=== PATIENT | female | born 1955 | race Caucasian/White ===

== ENCOUNTER 2023-04-29 09:22 | Observation (INO) ==
[2023-04-29 09:34] VITALS: BMI 37.6
--- NOTE | 2023-04-29 09:52 | DR.GENAD ---
HPI Time Seen Time Seen by Provider: 04/29/23 09:52 PCP Primary Care Physician: STAR HENLEY Complaint/Symptoms Chief Complaint Doctors Comments: 67-year-old female presents for evaluation. Reportedly had routine blood work drawn yesterday. Was notified that her hemoglobin is low at 6. Patient denies any known source of bleeding. Has a distant history of iron anemia when younger.. Patient has been feeling tired, weak in general. Having exertional shortness of breath, denies chest pain. No GI complaints, stools are brown. No blood in the urine she knows of. Chief Complaint:: Patient states she had lab work drawn yesterday around 1330 and got called about 1700 with a critically low hemoglobin of 6. patient states she been tired lately denies any blood in stool that she knows of. COVID-19 Coronavirus risk:travel/contact w/high risk person: No Has patient experienced Coronavirus symptoms: No Nurses notes reviewed Nurses Notes Review: Yes Source History Provided: Patient Mode of Arrival Mode of Arrival: Ambulatory Timing Onset of Chief Complaint: 04/28/23 PMH PMH Past Medical History: No Past Surgical History: Yes Surgical History: Ortho Surgery and Tonsillectomy Past Surgical History Comment: ankle,cataracts Family History History of Family Medical Conditions: No Social History Does patient currently use any type of tobacco product: No Have you used tobacco products in the last 12 months: No Type of Tobacco Use: None Does any household member use tobacco: No Alcohol Use: None Do you use any recreational Drugs:: No Lives With: Family Lives Where: Home Travel Risk Coronavirus risk:travel/contact w/high risk person: No Has patient experienced Coronavirus symptoms: No Infectious screening In the last 2 months have you had wt loss of >10#?: NO Have you had fever, night sweats or hemotysis?: No Have you traveled outside the country in the last 6 months?: No Isolation: Standard ROS Review of Systems Constitutional: Weakness and Fatigue Eyes: No Symptoms Reported ENTM: No Symptoms Reported Respiratoy: No Symptoms Reported Cardiovascular: No Symptoms Reported Gastrointestinal/Abdominal: No Symptoms Reported Genitourinary: No Symptoms Reported Neurological: Weakness Musculoskeletal: No Symptoms Reported Integumentary: No Symptoms Reported All Other Systems: Reviewed and Negative PE Vital Signs Vitals: Vital Signs Temperature 98.3 F Pulse Rate 87 Pulse Rate 83 Pulse Rate 86 Pulse Rate 84 Pulse Rate 86 Pulse Rate 90 Pulse Rate 88 Pulse Rate 87 Pulse Rate 86 Pulse Rate 90 Pulse Rate 94 Pulse Rate 84 Respiratory Rate 20 Blood Pressure 177/78 Blood Pressure 190/78 Blood Pressure 196/84 Blood Pressure 189/77 Blood Pressure 180/77 O2 Sat by Pulse Oximetry 97 O2 Sat by Pulse Oximetry 97 O2 Sat by Pulse Oximetry 99 O2 Sat by Pulse Oximetry 99 O2 Sat by Pulse Oximetry 99 O2 Sat by Pulse Oximetry 95 O2 Sat by Pulse Oximetry 97 O2 Sat by Pulse Oximetry 96 O2 Sat by Pulse Oximetry 97 O2 Sat by Pulse Oximetry 97 O2 Sat by Pulse Oximetry 97 O2 Sat by Pulse Oximetry 98 General General Appearance: Alert and In No Apparent Distress Eyes Eye exam: PERRL, EOMI and Other (Has pale palpebral conjunctivae) ENT ENT Exam: Normal Oropharynx and Mucous Membranes Moist Neck Neck Exam: Normal Inspection and Full ROM Respiratory Respiratory Exam: Normal Lung Sounds Bilat; negative Accessory Muscle Use or Respiratory Distress Cardiovascular Cardiovascular Exam: Regular Rate, Normal Rhythm and Normal Heart Sounds Abdominal Exam Abdominal Exam: Normal Inspection, Normal Bowel Sounds and Soft Extremities Extremities Exam: Edema (2+ pitting) Neurologic Neurological Exam: Alert, Oriented X3 and CN II-XII Intact; negative Motor Sensory Deficit Skin Skin Exam: Warm and Dry COURSE Treatment Treatment: 59-year-old female found to have significant anemia on outpatient blood work yesterday. Having symptoms with fatigue and exertional dyspnea. No chest pain, vital signs are stable, physical exam benign. Labs done here confirm a hemoglobin of 6.8. Recommend admission for transfusion of 2 units packed red blood cells for symptomatic anemia. Call put out to the covering MD, Dr. Mann. Dr Mann's [employer], Payal, aware/accepts the admission. [facility] Labs Reviewed Laboratory Results Reviewed?: Yes 04/29/23 10:10 04/29/23 10:10 Laboratory: WBC 8.1 X10^3/uL (3.6-10.0) 04/29/23 10:10 RBC 3.61 X10^6/uL (3.5-5.4) 04/29/23 10:10 Hgb 6.5 g/dL (12.0-16.0) L* 04/29/23 10:10 Hct 23.0 % (36.0-47.0) L 04/29/23 10:10 MCV 63.8 fL (80.0-100.0) L 04/29/23 10:10 MCH 17.9 pg (27.0-34.0) L 04/29/23 10:10 MCHC 28.1 g/dL (33.0-35.0) L 04/29/23 10:10 RDW 27.1 % (11.6-16.5) H 04/29/23 10:10 Plt Count 252 X10^3/uL (150.0-450.0) 04/29/23 10:10 Plt Count Comment Adequate (ADEQUATE) 04/29/23 10:10 MPV 8.2 fL (7.4-11.0) 04/29/23 10:10 Neut % (Auto) 78.9 % (42.0-75.0) H 04/29/23 10:10 Lymph % (Auto) 8.8 % (21.0-51.0) L 04/29/23 10:10 [place] % (Auto) 8.3 % (0.0-13.0) 04/29/23 10:10 Eos % (Auto) 3.4 % (0.9-2.9) H 04/29/23 10:10 Baso % (Auto) 0.6 % (0.2-1.0) 04/29/23 10:10 Neut # (Auto) 6.4 x10^3/uL (2.2-4.8) H 04/29/23 10:10 Lymph # (Auto) 0.7 X10^3/uL (1.3-2.9) L 04/29/23 10:10 [place] # (Auto) 0.7 x10^3/uL (0.3-0.8) 04/29/23 10:10 Eos # (Auto) 0.3 x10^3/uL (0.0-0.2) H 04/29/23 10:10 Baso # (Auto) 0.0 X10^3/uL (0.0-0.1) 04/29/23 10:10 Absolute Nucleated RBC 0.2 /100WBC 04/29/23 10:10 Plt Morphology Comment Normal (NORMAL) 04/29/23 10:10 RBC Morphology Abnormal (NORMAL) A 04/29/23 10:10 Hypochromasia 3+ A 04/29/23 10:10 Anisocytosis 3+ A 04/29/23 10:10 Microcytosis 2+ A 04/29/23 10:10 Target Cells Slight A 04/29/23 10:10 Stomatocytes Slight A 04/29/23 10:10 Sodium 140 mmol/L (136-145) 04/29/23 10:10 Corrected Sodium 140 mmol/L (136-145) 04/29/23 10:10 Potassium 3.2 mmol/L (3.5-5.1) L 04/29/23 10:10 Chloride 101 mmol/L (98-107) 04/29/23 10:10 Carbon Dioxide 33.5 mmol/L (21-32) H 04/29/23 10:10 BUN 9 mg/dL (7-18) 04/29/23 10:10 Creatinine 0.56 mg/dL (0.55-1.02) 04/29/23 10:10 Est GFR (MDRD) Af Amer > 60 (>60) 04/29/23 10:10 Est GFR (MDRD) Non-Af > 60 (>60) 04/29/23 10:10 Glucose 115 mg/dL (65-99) H 04/29/23 10:10 Calcium 8.8 mg/dL (8.5-10.1) 04/29/23 10:10 Corrected Calcium 9.4 mg/dL (8.5-10.1) 04/29/23 10:10 TIBC 543 ug/dL (250-450) H 04/29/23 10:10 Ferritin 24 ng/mL (8-252) 04/29/23 10:10 Total Bilirubin 2.50 mg/dL (0.2-1.0) H 04/29/23 10:10 AST 12 Units/L (15-37) L 04/29/23 10:10 ALT 9 Units/L (12-78) L 04/29/23 10:10 Alkaline Phosphatase 117 Units/L (46-116) H 04/29/23 10:10 Total Protein 7.2 g/dL (6.4-8.2) 04/29/23 10:10 Albumin 3.2 g/dL (3.4-5.0) L 04/29/23 10:10 Globulin 4.0 g/dL (2.5-4.5) 04/29/23 10:10 Albumin/Globulin Ratio 0.8 Ratio (1.1-2.1) L 04/29/23 10:10 Blood Type A NEGATIVE 04/29/23 10:10 Antibody Screen Negative 04/29/23 10:10 Crossmatch See Detail 04/29/23 10:10 Hgb 6.5 Opioid Opioid Risk Tool Age (Brandin box if 16-45): No History of Preadolescent Sexual Abuse: No Total: 0 Total Score Risk Category: Low Risk Copyright: Robin DREW predicting aberrant behaviors Discharge Plan Diagnosis Discharge Problem: Symptomatic anemia Discharge Plan Patient Disposition: 09 ADMITTED INPATIENT Condition: Stable Orders to Discharge Patient Discharge Orders: Transfer (Routine); Ordered 04/29/23 Ordered By: Ben Beck
[2023-04-29 10:38] LABS: BASOPHILS % (AUTO) 0.6 % (0.2-1.0); EOSINOPHILS # (AUTO) 0.3 x10^3/uL (0.0-0.2); EOSINOPHILS % (AUTO) 3.4 % (0.9-2.9); LYMPHOCYTES # (AUTO) 0.7 X10^3/uL (1.3-2.9); LYMPHOCYTES % (AUTO) 8.8 % (21.0-51.0); MEAN CORPUSCULAR HEMOGLOBIN 17.9 pg (27.0-34.0); MEAN CORPUSCULAR HGB CONC 28.1 g/dL (33.0-35.0); MEAN CORPUSCULAR VOLUME 63.8 fL (80.0-100.0); MEAN PLATELET VOLUME 8.2 fL (7.4-11.0); MONOCYTES # (AUTO) 0.7 x10^3/uL (0.3-0.8); MONOCYTES % (AUTO) 8.3 % (0.0-13.0); NEUTROPHILS # (AUTO) 6.4 x10^3/uL (2.2-4.8); NEUTROPHILS % (AUTO) 78.9 % (42.0-75.0); PLATELET COUNT 252 X10^3/uL (150.0-450.0); RED BLOOD COUNT 3.61 X10^6/uL (3.5-5.4); RED CELL DISTRIBUTION WIDTH 27.1 % (11.6-16.5); WHITE BLOOD COUNT 8.1 X10^3/uL (3.6-10.0)
[2023-04-29 10:53] LABS: HEMOGLOBIN 6.5 g/dL (12.0-16.0)
[2023-04-29 11:04] LABS: BLOOD UREA NITROGEN 9 mg/dL (7-18); CALCIUM 8.8 mg/dL (8.5-10.1); CARBON DIOXIDE 33.5 mmol/L (21-32); CREATININE 0.56 mg/dL (0.55-1.02); GLUCOSE 115 mg/dL (65-99); PLATELET MORPHOLOGY COMMENT NORMAL (NORMAL); eGFR NON BLACK RACES > 60 (>60)
[2023-04-29 11:05] LABS: ANISOCYTOSIS 3+; HYPOCHROMASIA 3+; MICROCYTOSIS 2+; STOMATOCYTES SLIGHT; TARGET CELLS SLIGHT
[2023-04-29 11:22] LABS: CHLORIDE 101 mmol/L (98-107); COR NA(FOR HYPERGLY) 140 mmol/L (136-145); POTASSIUM 3.2 mmol/L (3.5-5.1); SODIUM 140 mmol/L (136-145)
[2023-04-29 12:31] LABS: ALANINE AMINOTRANSFERASE 9 Units/L (12-78); ALBUMIN 3.2 g/dL (3.4-5.0); ALKALINE PHOSPHATASE 117 Units/L (46-116); ASPARTATE AMINO TRANSFERASE 12 Units/L (15-37); COR CA(FOR HYPOALB) 9.4 mg/dL (8.5-10.1); TOTAL PROTEIN 7.2 g/dL (6.4-8.2)
[2023-04-29] MEDS ORDERED: NS 250 ML IV 250 ML IV ONE (13:34)
[2023-04-29] MEDS ORDERED: NS 500 ML IV 500 ML IV ONE (17:40)
[2023-04-30 00:47] LABS: HEMATOCRIT 28.6 % (36.0-47.0)
[2023-04-30 00:59] LABS: HEMOGLOBIN 8.6 g/dL (12.0-16.0)
[2023-04-30 06:25] LABS: BASOPHILS # (AUTO) 0.1 X10^3/uL (0.0-0.1); BASOPHILS % (AUTO) 0.9 % (0.2-1.0); EOSINOPHILS # (AUTO) 0.5 x10^3/uL (0.0-0.2); EOSINOPHILS % (AUTO) 5.5 % (0.9-2.9); HEMOGLOBIN 8.8 g/dL (12.0-16.0); LYMPHOCYTES % (AUTO) 10.2 % (21.0-51.0); MEAN CORPUSCULAR HEMOGLOBIN 20.1 pg (27.0-34.0); MEAN CORPUSCULAR HGB CONC 29.5 g/dL (33.0-35.0); MEAN PLATELET VOLUME 8.3 fL (7.4-11.0); MONOCYTES # (AUTO) 0.7 x10^3/uL (0.3-0.8); NEUTROPHILS # (AUTO) 7.6 x10^3/uL (2.2-4.8); NEUTROPHILS % (AUTO) 76.4 % (42.0-75.0); PLATELET COUNT 247 X10^3/uL (150.0-450.0); RED BLOOD COUNT 4.41 X10^6/uL (3.5-5.4); RED CELL DISTRIBUTION WIDTH 29.8 % (11.6-16.5); WHITE BLOOD COUNT 9.9 X10^3/uL (3.6-10.0)
[2023-04-30 06:45] LABS: ALANINE AMINOTRANSFERASE 9 Units/L (12-78); ALBUMIN 3.2 g/dL (3.4-5.0); ALKALINE PHOSPHATASE 120 Units/L (46-116); ASPARTATE AMINO TRANSFERASE 16 Units/L (15-37); BLOOD UREA NITROGEN 9 mg/dL (7-18); CARBON DIOXIDE 29.4 mmol/L (21-32); CHLORIDE 102 mmol/L (98-107); COR CA(FOR HYPOALB) 9.6 mg/dL (8.5-10.1); COR NA(FOR HYPERGLY) 138 mmol/L (136-145); CREATININE 0.53 mg/dL (0.55-1.02); GLUCOSE 118 mg/dL (65-99); POTASSIUM 3.2 mmol/L (3.5-5.1); SODIUM 138 mmol/L (136-145); TOTAL PROTEIN 7.3 g/dL (6.4-8.2); eGFR NON BLACK RACES > 60 (>60)
[2023-04-30 06:53] LABS: ANISOCYTOSIS 3+; HYPOCHROMASIA 3+; MICROCYTOSIS 1+; PLATELET MORPHOLOGY COMMENT NORMAL (NORMAL); STOMATOCYTES SLIGHT; TARGET CELLS SLIGHT
[2023-04-30 08:19] VITALS: BP 144/63; PULSE 91; RESP 18; TEMP 97.1; O2SAT 95
== END 2023-04-30 10:45 | disposition home or self-care (01) ==
LOC: ER 09:22 → MED/SURG 09:22
PROVIDERS: ADMIT Internal Medicine; ATTEND Internal Medicine

== ENCOUNTER 2023-11-30 20:29 | Observation (INO) ==
--- NOTE | 2023-12-01 00:34 | DR.SOBA ---
HPI Time Seen Time Seen by Provider: 12/01/23 00:33 Primary Care Physician Primary Care Physician: STAR HENLEY Complaints Chief Complaint Doctors Comments: Patient states that for the past 2 weeks she has been: sob, dizzy, nauseated. Patient presents because she has had sob that is getting worse. Patient has a h/o iron deficiency anemia and has not been taking the iron supplement daily because the supplement would make her constipated.Patient denies: hematochezia,hematemesis,chest pain. Self Treatment fo Chief Complaint: PT C/O SOB,WEAKNESS ANEMIA THAT STARTED TODAY. Source History Provided: Patient Mode of Arrival Mode of Arrival: Ambulatory Timing Onset of Chief Complaint: 11/30/23 PMH PMH Past Medical History: Yes Past Medical History: Asthma Past Surgical History: Yes Surgical History: Ortho Surgery and Tonsillectomy Family History History of Family Medical Conditions: Yes Family Medical History: Cancer Social History Do you use any recreational Drugs:: No Infectious screening In the last 2 months have you had wt loss of >10#?: NO Have you had fever, night sweats or hemotysis?: No Have you traveled outside the country in the last 6 months?: No Isolation: Standard ROS Review of Systems Constitutional: Weakness Eyes: No Symptoms Reported ENTM: No Symptoms Reported Respiratoy: No Symptoms Reported Cardiovascular: No Symptoms Reported Gastrointestinal/Abdominal: Nausea Genitourinary: No Symptoms Reported Neurological: No Symptoms Reported Musculoskeletal: No Symptoms Reported Integumentary: No Symptoms Reported Hematologic/Lymphatic: No Symptoms Reported Endocrine: No Symptoms Reported Psychiatric: No Symptoms Reported All Other Systems: Reviewed and Negative PE Vital Signs Vitals: Vital Signs Temperature 98.0 F Pulse Rate [Right] 96 Pulse Rate [Right] 98 Pulse Rate 97 Respiratory Rate 18 Respiratory Rate 17 Respiratory Rate 20 Respiratory Rate 20 Blood Pressure [Left Arm] 178/77 Blood Pressure [Left Arm] 168/71 Blood Pressure [Left Arm] 185/76 Blood Pressure 185/76 O2 Sat by Pulse Oximetry 95 O2 Sat by Pulse Oximetry 95 O2 Sat by Pulse Oximetry 94 O2 Sat by Pulse Oximetry 94 General Limitations: No Limitations General Appearance: Alert and In No Apparent Distress Head Head Exam: Normal Inspection Eyes Eye exam: Normal Appearance ENT ENT Exam: Normal Exam Neck Neck Exam: Normal Inspection Chest Chest Inspection: Normal Inspection Respiratory Respiratory Exam: Normal Lung Sounds Bilat Respiratory Exam: Bilateral: Clear to Auscultation Cardiovascular Cardiovascular Exam: Regular Rate and Normal Rhythm Abdominal Exam Abdominal Exam: Normal Inspection, Normal Bowel Sounds and Soft Extremities Extremities Exam: Normal Inspection Back Back Exam: Normal Inspection Neurologic Neurological Exam: Alert and Oriented X3 Psychiatric Psychiatric Exam: Normal Affect and Normal Mood Skin Skin Exam: Warm, Dry, Intact and Normal Color MDM Differential Diagnosis Differential Diagnosis Comment:: electrolyte disorder,anemia COURSE Treatment Treatment: Patient's CBC revealed hgb 5.1 and hct 17.Patient was T& C for 2 units PRBCs. The first unit is being transfused in the Ed. Discussed case with Dr Nayak. Dr Nayak has accepted the patient to her service. [facility] Labs Reviewed Laboratory Results Reviewed?: Yes 12/01/23 00:46 12/01/23 00:46 Laboratory: WBC 10.4 X10^3/uL (3.6-10.0) H 12/01/23 00:46 RBC 2.54 X10^6/uL (3.5-5.4) L 12/01/23 00:46 Hgb 5.1 g/dL (12.0-16.0) L* 12/01/23 00:46 Hct 17.5 % (36.0-47.0) L* 12/01/23 00:46 MCV 69.2 fL (80.0-100.0) L 12/01/23 00:46 MCH 20.0 pg (27.0-34.0) L 12/01/23 00:46 MCHC 28.9 g/dL (33.0-35.0) L 12/01/23 00:46 RDW 20.2 % (11.6-16.5) H 12/01/23 00:46 Plt Count 289 X10^3/uL (150.0-450.0) 12/01/23 00:46 Plt Count Comment Adequate (ADEQUATE) 12/01/23 00:46 MPV 7.5 fL (7.4-11.0) 12/01/23 00:46 Neut % (Auto) 80.2 % (42.0-75.0) H 12/01/23 00:46 Lymph % (Auto) 8.6 % (21.0-51.0) L 12/01/23 00:46 [place] % (Auto) 8.7 % (0.0-13.0) 12/01/23 00:46 Eos % (Auto) 2.1 % (0.9-2.9) 12/01/23 00:46 Baso % (Auto) 0.4 % (0.2-1.0) 12/01/23 00:46 Neut # (Auto) 8.4 x10^3/uL (2.2-4.8) H 12/01/23 00:46 Lymph # (Auto) 0.9 X10^3/uL (1.3-2.9) L 12/01/23 00:46 [place] # (Auto) 0.9 x10^3/uL (0.3-0.8) H 12/01/23 00:46 Eos # (Auto) 0.2 x10^3/uL (0.0-0.2) 12/01/23 00:46 Baso # (Auto) 0.0 X10^3/uL (0.0-0.1) 12/01/23 00:46 Absolute Nucleated RBC 0.1 /100WBC 12/01/23 00:46 Plt Morphology Comment Normal (NORMAL) 12/01/23 00:46 RBC Morphology Abnormal (NORMAL) A 12/01/23 00:46 Hypochromasia 3+ A 12/01/23 00:46 Anisocytosis 1+ A 12/01/23 00:46 Microcytosis 1+ A 12/01/23 00:46 Stomatocytes Present 12/01/23 00:46 Sodium 140 mmol/L (136-145) 12/01/23 00:46 Corrected Sodium 141 mmol/L (136-145) 12/01/23 00:46 Potassium 3.5 mmol/L (3.5-5.1) 12/01/23 00:46 Chloride 103 mmol/L (98-107) 12/01/23 00:46 Carbon Dioxide 28.3 mmol/L (21-32) 12/01/23 00:46 BUN 25 mg/dL (7-18) H 12/01/23 00:46 Creatinine 0.76 mg/dL (0.55-1.02) 12/01/23 00:46 Est GFR (MDRD) Af Amer > 60 (>60) 12/01/23 00:46 Est GFR (MDRD) Non-Af > 60 (>60) 12/01/23 00:46 Glucose 137 mg/dL (65-99) H 12/01/23 00:46 Calcium 10.0 mg/dL (8.5-10.1) 12/01/23 00:46 Corrected Calcium 10.7 mg/dL (8.5-10.1) H 12/01/23 00:46 Total Bilirubin 1.20 mg/dL (0.2-1.0) H 12/01/23 00:46 AST 20 Units/L (15-37) 12/01/23 00:46 ALT 13 Units/L (12-78) 12/01/23 00:46 Alkaline Phosphatase 158 Units/L (46-116) H 12/01/23 00:46 Total Protein 7.5 g/dL (6.4-8.2) 12/01/23 00:46 Albumin 3.1 g/dL (3.4-5.0) L 12/01/23 00:46 Globulin 4.4 g/dL (2.5-4.5) 12/01/23 00:46 Albumin/Globulin Ratio 0.7 Ratio (1.1-2.1) L 12/01/23 00:46 Blood Type A NEGATIVE 12/01/23 01:36 Antibody Screen Negative 12/01/23 01:36 Crossmatch See Detail 12/01/23 01:36 Opioid Opioid Risk Tool Age (Brandin box if 16-45): No History of Preadolescent Sexual Abuse: No Total: 0 Total Score Risk Category: Low Risk Copyright: Robin DREW predicting aberrant behaviors Discharge Plan Diagnosis Discharge Problem: Symptomatic anemia Discharge Plan Patient Disposition: ADMITTED INPATIENT Condition: Stable Prescriptions: No Action ondansetron HCl 8 mg tablet 8 mg PO BID Health Concerns: Post Hospitalization: new medications and changes needed to prevent readmission or further decline. Pt educated and given instructions on all concerns. Plan of Treatment: Continue with present treatment and follow up plan. Pt is to keep follow up appointment as instructed and take medications as ordered. Orders to Discharge Patient Discharge Orders: Transfer (Routine); Ordered 12/01/23 Ordered By: Ciarra Hankins Follow ups/Referrals Follow ups/Referrals: STAR HENLEY [Primary Care Provider] - 3 days Instructions Stand Alone Forms: Post Hospital Follow Up Care
[2023-12-01 01:01] LABS: BASOPHILS % (AUTO) 0.4 % (0.2-1.0); EOSINOPHILS # (AUTO) 0.2 x10^3/uL (0.0-0.2); MONOCYTES # (AUTO) 0.9 x10^3/uL (0.3-0.8); NEUTROPHILS # (AUTO) 8.4 x10^3/uL (2.2-4.8); RED CELL DISTRIBUTION WIDTH 20.2 % (11.6-16.5); WHITE BLOOD COUNT 10.4 X10^3/uL (3.6-10.0)
[2023-12-01 01:11] LABS: ALANINE AMINOTRANSFERASE 13 Units/L (12-78); ALBUMIN 3.1 g/dL (3.4-5.0); ALKALINE PHOSPHATASE 158 Units/L (46-116); ASPARTATE AMINO TRANSFERASE 20 Units/L (15-37); BLOOD UREA NITROGEN 25 mg/dL (7-18); CARBON DIOXIDE 28.3 mmol/L (21-32); CHLORIDE 103 mmol/L (98-107); COR CA(FOR HYPOALB) 10.7 mg/dL (8.5-10.1); COR NA(FOR HYPERGLY) 141 mmol/L (136-145); CREATININE 0.76 mg/dL (0.55-1.02); GLUCOSE 137 mg/dL (65-99); POTASSIUM 3.5 mmol/L (3.5-5.1); SODIUM 140 mmol/L (136-145); TOTAL PROTEIN 7.5 g/dL (6.4-8.2); eGFR NON BLACK RACES > 60 (>60)
[2023-12-01 01:12] LABS: EOSINOPHILS % (AUTO) 2.1 % (0.9-2.9); LYMPHOCYTES # (AUTO) 0.9 X10^3/uL (1.3-2.9); LYMPHOCYTES % (AUTO) 8.6 % (21.0-51.0); MEAN CORPUSCULAR HGB CONC 28.9 g/dL (33.0-35.0); MEAN CORPUSCULAR VOLUME 69.2 fL (80.0-100.0); MEAN PLATELET VOLUME 7.5 fL (7.4-11.0); MONOCYTES % (AUTO) 8.7 % (0.0-13.0); NEUTROPHILS % (AUTO) 80.2 % (42.0-75.0); PLATELET COUNT 289 X10^3/uL (150.0-450.0); RED BLOOD COUNT 2.54 X10^6/uL (3.5-5.4)
[2023-12-01 01:17] LABS: HEMOGLOBIN 5.1 g/dL (12.0-16.0)
[2023-12-01 01:18] LABS: ANISOCYTOSIS 1+; HEMATOCRIT 17.5 % (36.0-47.0); HYPOCHROMASIA 3+; MICROCYTOSIS 1+; PLATELET MORPHOLOGY COMMENT NORMAL (NORMAL); STOMATOCYTES PRESENT
[2023-12-01] MEDS ORDERED: NS 1,000 ML IV 1,000 ML ONE (02:53)
[2023-12-01 06:27] VITALS: BMI 32.2
--- NOTE | 2023-12-01 07:51 | RAD ---
EXAM: CHEST, 1 VIEW HISTORY: co/ shortness of breath; COMPARISON: No relevant prior studies were available for comparison at the time of interpretation. TECHNIQUE: CHEST, 1 VIEW FINDINGS: Chest: Lines and tubes: None Mediastinum: Cardiac and mediastinal shadow is within normal limits for size and contour. Pulmonary vessels: No pulmonary vascular congestion. Lung boland: No suspicious airspace opacity. Pleura: No effusion. No pneumothorax. Bones and soft tissues: No acute osseous or soft tissue abnormality. IMPRESSION: 1. No acute cardiopulmonary abnormality THIS IS AN ELECTRONICALLY VERIFIED FINAL REPORT 12/01/2023 7:47 AM - Electronically signed by Abdi Agrawal MD
[2023-12-01] MEDS ORDERED: PATIENT'S HOME MEDICATION (Ondansetron Hcl 8 mg tablet) PO SCH (09:00)
[2023-12-01] MEDS ORDERED: NS 250 ML IV 250 ML IV ONE (10:22)
[2023-12-01 10:26] LABS: IRON 24 ug/dL (50-175); TOTAL IRON BINDING CAPACITY 419 ug/dL (250-450)
--- NOTE | 2023-12-01 10:33 | DR.H&P ---
H&P History & Physical for Day of: H&P Date: 12/01/23 Chief Complaint Chief Complaint: fatigue, SOB History of Present Illness History of Present Illness: Ms Roper is a 68y/o female with a PMH of anemia presented with worsening SOB and fatigue. Patient reports having a hx of SEAN and was admitted for similar symptoms in 2022. She did require blood transfusion then. She has not been taking her iron supplement consistently as it makes her constipated. She denies melena or bright red blood in stools. She has never had a EGD or colonoscopy. She has been referred to Dr Michel and waiting for appointment. In the ER, Hgb was 5.1 and patient was given 1 unit of PRBCs. All other labs were within normal limits. She is waiting to get the 2nd unit of PRBCs. Labs/imaging reviewed -Hgb 5.1 -CXR: no acute process Plan: Monitor H&H, transfuse 2nd unit. Order anemia panel and FOBT. Monitor for any obvious bleeding. Replace electrolytes prn. Ambulate as tolerated. Monitor AM labs/imaging. Past Medical History Past Medical History: Asthma Past Surgical History Surgical History: Ortho Surgery and Tonsillectomy Family History Family Medical History: Cancer Social History Alcohol Use: None Medications Home Medications: Home Medications Medication Instructions Recorded Confirmed Type ondansetron HCl 8 mg tablet 8 mg PO BID 12/01/23 12/01/23 History Allergies Allergies Allergy/AdvReac Type Severity Reaction Status Date / Time No Known Allergies Allergy Verified 04/29/23 09:34 Labs 12/01/23 00:46 12/01/23 00:46 Labs: Laboratory WBC 10.4 X10^3/uL (3.6-10.0) H 12/01/23 00:46 RBC 2.54 X10^6/uL (3.5-5.4) L 12/01/23 00:46 Hgb 5.1 g/dL (12.0-16.0) L* 12/01/23 00:46 Hct 17.5 % (36.0-47.0) L* 12/01/23 00:46 MCV 69.2 fL (80.0-100.0) L 12/01/23 00:46 MCH 20.0 pg (27.0-34.0) L 12/01/23 00:46 MCHC 28.9 g/dL (33.0-35.0) L 12/01/23 00:46 RDW 20.2 % (11.6-16.5) H 12/01/23 00:46 Plt Count 289 X10^3/uL (150.0-450.0) 12/01/23 00:46 Plt Count Comment Adequate (ADEQUATE) 12/01/23 00:46 MPV 7.5 fL (7.4-11.0) 12/01/23 00:46 Neut % (Auto) 80.2 % (42.0-75.0) H 12/01/23 00:46 Lymph % (Auto) 8.6 % (21.0-51.0) L 12/01/23 00:46 [place] % (Auto) 8.7 % (0.0-13.0) 12/01/23 00:46 Eos % (Auto) 2.1 % (0.9-2.9) 12/01/23 00:46 Baso % (Auto) 0.4 % (0.2-1.0) 12/01/23 00:46 Neut # (Auto) 8.4 x10^3/uL (2.2-4.8) H 12/01/23 00:46 Lymph # (Auto) 0.9 X10^3/uL (1.3-2.9) L 12/01/23 00:46 [place] # (Auto) 0.9 x10^3/uL (0.3-0.8) H 12/01/23 00:46 Eos # (Auto) 0.2 x10^3/uL (0.0-0.2) 12/01/23 00:46 Baso # (Auto) 0.0 X10^3/uL (0.0-0.1) 12/01/23 00:46 Absolute Nucleated RBC 0.1 /100WBC 12/01/23 00:46 Plt Morphology Comment Normal (NORMAL) 12/01/23 00:46 RBC Morphology Abnormal (NORMAL) A 12/01/23 00:46 Hypochromasia 3+ A 12/01/23 00:46 Anisocytosis 1+ A 12/01/23 00:46 Microcytosis 1+ A 12/01/23 00:46 Stomatocytes Present 12/01/23 00:46 Sodium 140 mmol/L (136-145) 12/01/23 00:46 Corrected Sodium 141 mmol/L (136-145) 12/01/23 00:46 Potassium 3.5 mmol/L (3.5-5.1) 12/01/23 00:46 Chloride 103 mmol/L (98-107) 12/01/23 00:46 Carbon Dioxide 28.3 mmol/L (21-32) 12/01/23 00:46 BUN 25 mg/dL (7-18) H 12/01/23 00:46 Creatinine 0.76 mg/dL (0.55-1.02) 12/01/23 00:46 Est GFR (MDRD) Af Amer > 60 (>60) 12/01/23 00:46 Est GFR (MDRD) Non-Af > 60 (>60) 12/01/23 00:46 Glucose 137 mg/dL (65-99) H 12/01/23 00:46 Calcium 10.0 mg/dL (8.5-10.1) 12/01/23 00:46 Corrected Calcium 10.7 mg/dL (8.5-10.1) H 12/01/23 00:46 Total Bilirubin 1.20 mg/dL (0.2-1.0) H 12/01/23 00:46 AST 20 Units/L (15-37) 12/01/23 00:46 ALT 13 Units/L (12-78) 12/01/23 00:46 Alkaline Phosphatase 158 Units/L (46-116) H 12/01/23 00:46 Total Protein 7.5 g/dL (6.4-8.2) 12/01/23 00:46 Albumin 3.1 g/dL (3.4-5.0) L 12/01/23 00:46 Globulin 4.4 g/dL (2.5-4.5) 12/01/23 00:46 Albumin/Globulin Ratio 0.7 Ratio (1.1-2.1) L 12/01/23 00:46 Blood Type A NEGATIVE 12/01/23 01:36 Antibody Screen Negative 12/01/23 01:36 Crossmatch See Detail 12/01/23 01:36 Review of Systems Constitutional: Weakness and Malaise Eyes: No Symptoms Reported ENT: No Symptoms Reported Respiratory: Shortness of Breath Cardiovascular: No Symptoms Reported Gastrointestinal: No Symptoms Reported Genitourinary: No Symptoms Reported Musculoskeletal: No Symptoms Reported Skin: No Symptoms Reported Neurological: No Symptoms Reported Physical Exam Vital Signs: Vital Signs Temperature 98.5 F Temperature 97.6 F Temperature 98.0 F Pulse Rate [Right] 103 Pulse Rate [Right] 98 Pulse Rate [Right] 96 Pulse Rate [Right] 98 Respiratory Rate 20 Respiratory Rate 21 Respiratory Rate 18 Respiratory Rate 17 Blood Pressure [Left Arm] 180/77 Blood Pressure [Left Arm] 172/79 Blood Pressure [Left Arm] 178/77 Blood Pressure [Left Arm] 168/71 O2 Sat by Pulse Oximetry 98 O2 Sat by Pulse Oximetry 98 O2 Sat by Pulse Oximetry 95 O2 Sat by Pulse Oximetry 95 Oriented: Normal Eyes: Normal Nose: Normal Throat: Normal Respiratory: Clear Throughout Cardiovascular: Normal Auscultation: Bowel Sounds: Normal Palpation: Normal Tenderness: Normal Skin: Normal Musculoskeletal: Normal Psychiatric: Normal Mood Description: Calm Affect: Normal Speech Pattern: Clear and Appropriate Assessment/Plan (1) Symptomatic anemia: Status: Acute (2) Generalized weakness: Status: Acute (3) SEAN (iron deficiency anemia): Qualifiers: Iron deficiency anemia type: other iron deficiency Qualified Code(s): D50.8 - Other iron deficiency anemias Status: Acute Review H&P Reviewed: Yes Patient was examined?: Yes
[2023-12-01] MEDS: ZOFRAN ODT PO SCH (11:49)
[2023-12-01 14:37] LABS: HEMATOCRIT 22.8 % (36.0-47.0)
[2023-12-01 14:53] LABS: HEMOGLOBIN 6.9 g/dL (12.0-16.0)
[2023-12-01] MEDS: INFeD or DEXFERRUM 25 MG in NS 100 ML IV 100 ML IV ONE (16:14)
[2023-12-01] MEDS: INFeD or DEXFERRUM 975 MG in NS 500 ML IV 500 ML IV ONE (16:17)
[2023-12-02 06:02] LABS: BASOPHILS # (AUTO) 0.2 X10^3/uL (0.0-0.1); BASOPHILS % (AUTO) 1.7 % (0.2-1.0); EOSINOPHILS # (AUTO) 0.4 x10^3/uL (0.0-0.2); HEMATOCRIT 23.3 % (36.0-47.0); LYMPHOCYTES # (AUTO) 1.1 X10^3/uL (1.3-2.9); LYMPHOCYTES % (AUTO) 8.5 % (21.0-51.0); MEAN CORPUSCULAR HEMOGLOBIN 21.9 pg (27.0-34.0); MEAN CORPUSCULAR VOLUME 73.2 fL (80.0-100.0); MEAN PLATELET VOLUME 7.5 fL (7.4-11.0); MONOCYTES % (AUTO) 8.4 % (0.0-13.0); NEUTROPHILS # (AUTO) 9.7 x10^3/uL (2.2-4.8); NEUTROPHILS % (AUTO) 78.4 % (42.0-75.0); PLATELET COUNT 287 X10^3/uL (150.0-450.0); RED BLOOD COUNT 3.18 X10^6/uL (3.5-5.4); RED CELL DISTRIBUTION WIDTH 21.9 % (11.6-16.5); WHITE BLOOD COUNT 12.3 X10^3/uL (3.6-10.0)
[2023-12-02 06:15] LABS: ALANINE AMINOTRANSFERASE 12 Units/L (12-78); ALBUMIN 2.8 g/dL (3.4-5.0); ALKALINE PHOSPHATASE 138 Units/L (46-116); BLOOD UREA NITROGEN 14 mg/dL (7-18); CALCIUM 9.4 mg/dL (8.5-10.1); CHLORIDE 103 mmol/L (98-107); COR CA(FOR HYPOALB) 10.4 mg/dL (8.5-10.1); COR NA(FOR HYPERGLY) 139 mmol/L (136-145); CREATININE 0.59 mg/dL (0.55-1.02); GLUCOSE 135 mg/dL (65-99); POTASSIUM 3.3 mmol/L (3.5-5.1); SODIUM 138 mmol/L (136-145); TOTAL PROTEIN 6.7 g/dL (6.4-8.2); eGFR NON BLACK RACES > 60 (>60)
[2023-12-02 06:32] LABS: ANISOCYTOSIS 1+; HYPOCHROMASIA 2+; MICROCYTOSIS SLIGHT; PLATELET MORPHOLOGY COMMENT NORMAL (NORMAL)
[2023-12-02 06:43] LABS: ASPARTATE AMINO TRANSFERASE 20 Units/L (15-37)
[2023-12-02] MEDS ORDERED: CATAPRES TAB 0.1 MG PO ONE (10:59)
[2023-12-02] MEDS ORDERED: CATAPRES TAB 0.1 MG ONE (11:03)
[2023-12-02 11:29] VITALS: TEMP 98.2
[2023-12-02 14:59] VITALS: BP 175/74; PULSE 79; RESP 22; O2SAT 95
[2023-12-02] MEDS: K-DUR TAB 20 MEQ PO SCH (15:03)
[2023-12-02 15:59] LABS: HEMATOCRIT 28.5 % (36.0-47.0); HEMOGLOBIN 8.7 g/dL (12.0-16.0)
== END 2023-12-02 15:30 | disposition home or self-care (01) ==
LOC: MED/SURG 20:29 → ER 20:29 → OBSVTOIN 12-01 04:45 → INTOOBSV 12-01 04:45 → MED/SURG 12-01 05:31
PROVIDERS: ADMIT Internal Medicine; ATTEND Internal Medicine
DX: R53.1 Weakness; R42 Dizziness and giddiness; R06.02 Shortness of breath; D50.8 Other iron deficiency anemias; D64.89 Other specified anemias